=== PATIENT | male | born 1960 | race African-American/Black ===

== ENCOUNTER 2018-01-02 14:39 | Inpatient (IN) | payer BC ==
[~2018-01-02] VITALS: Ht 167.6 cm; Wt 77.8 kg
[2018-01-02 16:11] LABS: HEMOGLOBIN. 13.4 g/dL (14.0-18.0); MEAN CORPUSCULAR HEMOGLOBIN 29.3 pg (28.0-32.0); MEAN CORPUSCULAR VOLUME 89.9 fL (80.0-94.0); MEAN PLATELET VOLUME 10.5 fl (7.4-10.4); PLATELET 229 x1000/uL (130-400); RED BLOOD CELL COUNT 4.56 mill/uL (4.7-6.1); RED CELL DISTRIBUTION WIDTH 13.6 % (11.6-14.6)
[2018-01-02 16:14] LABS: CHLORIDE 108 mEq/L (98-107)
[2018-01-02 16:15] LABS: INR 1.1; PROTHROMBIN TIME 11.8 sec (9.4-11.6)
[2018-01-02 18:24] LABS: PLATELET ESTIMATE NORMAL
[2018-01-02] MEDS ORDERED: HYDRALAZINE 20MG/ML VIAL IV ONE (19:00)
[2018-01-02 21:15] VITALS: BP 167/113
[2018-01-02 21:26] LABS: CLARITY URINE CLEAR (CLEAR); COLOR URINE YELLOW (YELLOW); KETONES URINE TRACE (NEGATIVE); LEUKOCYTE ESTERASE URINE NEGATIVE (NEGATIVE); NITRITE URINE NEGATIVE (NEGATIVE); OCCULT BLOOD URINE NEGATIVE (NEGATIVE); PROTEIN URINE 2+ (NEGATIVE); SPECIFIC GRAVITY URINE 1.018 (1.005-1.030); UROBILINOGEN URINE 0.2 E.U./dL (0.2-1.0)
[2018-01-02] MEDS ORDERED: CLON0.2T PO (22:29)
[2018-01-02] MEDS ORDERED: CLOP75TA16 PO (22:29)
[2018-01-02] MEDS ORDERED: HYDR12.529 PO (22:29)
[2018-01-02] MEDS ORDERED: ATEN-42 PO (22:29)
[2018-01-03] MEDS ORDERED: TEMAZEPAM 15MG CAPSULE PO PRN (00:15)
[2018-01-03] MEDS ORDERED: FUROSEMIDE 40MG/4ML VIAL IVP NR (00:15)
[2018-01-03] MEDS ORDERED: CLONIDINE 0.1MG TABLET PO PRN (00:15)
[2018-01-03] MEDS ORDERED: POTASSIUM CHLORIDE 20MEQ TABLET SR PO NR (00:15)
[2018-01-03 00:17] VITALS: BP 161/105
[2018-01-03 04:00] VITALS: BP 142/98
[2018-01-03 07:38] LABS: HEMATOCRIT. 36.7 % (42.0-52.0); HEMOGLOBIN. 12.1 g/dL (14.0-18.0); MEAN CORPUSCULAR HEMOGLOBIN 29.5 pg (28.0-32.0); MEAN CORPUSCULAR VOLUME 89.4 fL (80.0-94.0); MEAN PLATELET VOLUME 10.6 fl (7.4-10.4); PLATELET 193 x1000/uL (130-400); RED BLOOD CELL COUNT 4.11 mill/uL (4.7-6.1); RED CELL DISTRIBUTION WIDTH 13.5 % (11.6-14.6)
[2018-01-03 08:00] VITALS: BP 141/96
[2018-01-03] MEDS ORDERED: ATENOLOL 50 MG TABLET PO SCH (09:00)
[2018-01-03] MEDS ORDERED: HEPARIN 5000 UNITS/ML VIAL SUBCUT SCH (09:00)
[2018-01-03] MEDS ORDERED: CLONIDINE 0.2MG TABLET PO SCH (09:00)
[2018-01-03] MEDS ORDERED: CLOPIDOGREL 75MG TABLET PO SCH (09:00)
[2018-01-03 09:01] LABS: PLATELET ESTIMATE NORMAL
[2018-01-03] MEDS ORDERED: FUROSEMIDE 40MG/4ML VIAL IVP SCH (11:45)
[2018-01-03 12:00] VITALS: BP 102/75
[2018-01-03] MEDS ORDERED: POTASSIUM CHLORIDE 20MEQ TABLET SR PO SCH (14:15)
[2018-01-03 16:00] VITALS: BP 108/76
[2018-01-03 17:31] VITALS: BP 108/76
== END 2018-01-03 19:00 | disposition short-term general hospital (02) | DRG 684 ==
LOC: ER 17:07 → 7WST 19:21 → EDBEDREQ 19:28 → EDBEDREQTM 19:28 → ENRESERV 20:10
PROVIDERS: ADMIT Internal Medicine; ATTEND Internal Medicine
DX: N17.9 Acute kidney failure, unspecified (principal); E87.6 Hypokalemia; I12.9 Hypertensive chronic kidney disease with stage 1 through stage 4 chronic kidney disease, or unspecified chronic kidney disease; N18.9 Chronic kidney disease, unspecified; Z79.899 Other long term (current) drug therapy
CPT/HCPCS: 36415; 71045; 76770; 80048; 80053; 80061; 81003; 83880; 85025; 85610; 93005; 93970; 96374; 99291; J0360; J1644; J1940

== ENCOUNTER 2018-09-19 12:06 | Emergency (ER) | payer BC ==
[~2018-09-19] VITALS: Ht 177.8 cm; Wt 77.0 kg
[~2018-09-19 12:06] MED LIST: ATEN-42 PO; CLON0.2T PO; CLOP75TA16 PO; HYDR12.529 PO
[2018-09-19] MEDS ORDERED: IBUPROFEN 600MG TABLET PO ONE (13:15)
[2018-09-19 15:22] LABS: HEMATOCRIT. 38.9 % (42.0-52.0); HEMOGLOBIN. 12.8 g/dL (14.0-18.0); MEAN CORPUSCULAR HEMOGLOBIN 30.3 pg (28.0-32.0); MEAN PLATELET VOLUME 9.8 fl (7.4-10.4); PLATELET 224 x1000/uL (130-400); RED BLOOD CELL COUNT 4.23 mill/uL (4.7-6.1); RED CELL DISTRIBUTION WIDTH 16.4 % (11.6-14.6)
[2018-09-19 15:53] LABS: PLATELET ESTIMATE NORMAL
[2018-09-19] MEDS ORDERED: LOSARTAN POTASSIUM 50 MG TABLET PO SCH (16:15)
[2018-09-19] MEDS ORDERED: LISINOPRIL 40MG TABLET PO ONE (16:15)
[2018-09-19] MEDS ORDERED: HYDROCODONE/ACETAMINOPHEN 5/325MG TABLET PO ONE (17:45)
[2018-09-19 18:08] LABS: INR 1.2; PROTHROMBIN TIME 11.8 sec (9.1-11.1)
[2018-09-19] MEDS ORDERED: ONDANSETRON HCL 4MG/2ML INJ IV ONE (18:15)
[2018-09-19] MEDS ORDERED: MORPHINE SULFATE 4 MG/ML CPJ (NOT FOR IM USE) IV ONE (18:15)
[2018-09-19] MEDS ORDERED: CARVEDILOL 25MG TABLET PO ONE (19:30)
[2018-09-19] MEDS ORDERED: FUROSEMIDE 40MG TABLET PO ONE (19:30)
[2018-09-19 20:53] VITALS: BP 174/101
== END 2018-09-19 20:54 | disposition home or self-care (01) ==
LOC: ER 12:06
DX: M10.9 Gout, unspecified (principal); I10 Essential (primary) hypertension; N28.9 Disorder of kidney and ureter, unspecified
CPT/HCPCS: 29505; 36415; 73562; 80048; 84550; 93971; 99285; L1830

== ENCOUNTER 2019-06-02 21:23 | Inpatient (IN) | payer BC ==
[~2019-06-02] VITALS: Ht 167.6 cm; Wt 65.3 kg
[~2019-06-02 21:23] MED LIST changes: -CLOP75TA16 PO; +CLOP75TA4 PO
[2019-06-02] MEDS ORDERED: DIPHENHYDRAMINE 50MG/ML VIAL ONE (21:44)
[2019-06-02] MEDS ORDERED: METHYLPREDNISOLONE SOD SUCC 125 MG/2 ML VIAL IV ONE (21:45)
[2019-06-02] MEDS ORDERED: FAMOTIDINE 20MG/2ML VIAL IV ONE ×2 (21:45)
[2019-06-02] MEDS ORDERED: DIPHENHYDRAMINE 50MG/ML VIAL IV ONE (21:45)
[2019-06-02 22:21] LABS: CHLORIDE 104 mEq/L (98-107)
[2019-06-02 22:23] LABS: INR 1.1; PROTHROMBIN TIME 10.9 sec (9.6-11.0)
[2019-06-02 22:37] LABS: HEMATOCRIT. 37.4 % (42.0-52.0); HEMOGLOBIN. 12.4 g/dL (14.0-18.0); MEAN CORPUSCULAR HEMOGLOBIN 31.6 pg (28.0-32.0); MEAN CORPUSCULAR VOLUME 94.9 fL (80.0-94.0); MEAN PLATELET VOLUME 10.7 fl (7.4-10.4); PLATELET 161 x1000/uL (130-400); RED BLOOD CELL COUNT 3.94 mill/uL (4.7-6.1); RED CELL DISTRIBUTION WIDTH 13.3 % (11.6-14.6)
[2019-06-02 23:18] LABS: PLATELET ESTIMATE NORMAL
[2019-06-03 10:00] VITALS: BP 179/104
[2019-06-03] MEDS ORDERED: DIPHENHYDRAMINE 50MG/ML VIAL IV PRN (10:30)
[2019-06-03] MEDS ORDERED: HYDROCODONE/ACETAMINOPHEN 5/325MG TABLET PO PRN (10:30)
[2019-06-03] MEDS ORDERED: CLONIDINE 0.1MG TABLET PO PRN (10:30)
[2019-06-03] MEDS ORDERED: SODIUM CHLORIDE 0.45% 1,000 ML IV SCH (10:30)
[2019-06-03] MEDS ORDERED: AMLODIPINE 5MG TABLET PO SCH (10:30)
[2019-06-03] MEDS ORDERED: FAMOTIDINE 20MG/2ML VIAL IV SCH (10:32)
[2019-06-03 11:04] VITALS: BP 161/99
[2019-06-03 16:11] VITALS: BP 123/79
[2019-06-03] MEDS ORDERED: METHYLPREDNISOLONE SOD SUCC 40 MG/ML VIAL IV ONE ×2 (16:45→17:15)
[2019-06-03 16:54] LABS: HEMATOCRIT 33.6 % (42.0-52.0); HEMOGLOBIN 11.6 g/dL (14.0-18.0); MEAN CORPUSCULAR VOLUME 95.1 fL (80.0-94.0); PLATELET 152 x1000/uL (130-400); RED BLOOD CELL COUNT 3.53 mill/uL (4.7-6.1)
[2019-06-03 18:13] VITALS: BP 123/79
[2019-06-03] MEDS ORDERED: HEPARIN 5000 UNITS/ML VIAL SUBCUT SCH (21:00)
== END 2019-06-03 20:00 | disposition home or self-care (01) | DRG 916 ==
LOC: ER 22:27 → 6WST 06-03 00:13 → ENRESERV 06-03 07:59
PROVIDERS: ADMIT Internal Medicine; ATTEND Internal Medicine
DX: T78.3XXA Angioneurotic edema, initial encounter (principal); M10.9 Gout, unspecified; N18.9 Chronic kidney disease, unspecified; I12.9 Hypertensive chronic kidney disease with stage 1 through stage 4 chronic kidney disease, or unspecified chronic kidney disease; T46.4X5A Adverse effect of angiotensin-converting-enzyme inhibitors, initial encounter; D64.9 Anemia, unspecified; Z79.899 Other long term (current) drug therapy; Z88.8 Allergy status to other drugs, medicaments and biological substances; Y92.89 Other specified places as the place of occurrence of the external cause; Z79.02 Long term (current) use of antithrombotics/antiplatelets
CPT/HCPCS: 36415; 71045; 76770; 80048; 85027; 86850; 86900; 93005; 93306; 93970; 96374; 99285; J1200; J2920; J2930; J3490